=== PATIENT | female | born 1955 | race Caucasian/White ===

== ENCOUNTER → 2018-08-28 | Outpatient (CLI) | payer MEDICARE ==
[~2018-08-28] VITALS: Ht 170.2 cm; Wt 107.0 kg
[~2018-08-28] MED LIST: ASPI-9 PO; AZEL50GE5 TOP; BACL10TA PO; CARB200T6 PO; CATHETER FLUSH 10 ML SYR IV PRN; CETI10CA PO; CLOP75TA28 PO; FERR325T18 PO; GABA-488 PO; HYDR-3820 PO; INDO25CA15 PO; INDO75CA3 PO; LISI-556 PO; NFPRILOC40 PO; ONDA4TAB11 PO; ONDANSETRON 4 MG/2 ML (SDV) Z0FRAN IVP ONE; PANT40TA2 PO; PANT40VI PO; REGADENOSON 0.4 MG/5 ML SYR (LEXISCAN) IV ONE; SIMV20TA3 PO; SUCR1TAB PO; SUCR1TAB36 PO; WARF5TAB PO; WARF7.5T PO
--- NOTE | 2018-08-28 20:29 | STRESS TEST ---
DATE OF SERVICE: 08/28/2018 RESTING AND POST REGADENOSON TECHNETIUM-99M TETROFOSMIN SPECT CT IMAGING ORDERING PHYSICIAN: Terra Lowry APRN PRIMARY CARE PHYSICIAN: Dr. Velazquez. OTHER PHYSICIAN: Rosemary Aguiar MD CLINICAL DIAGNOSIS: Chest discomfort. Baseline images were carried out after injection of 9.89 mCi of technetium-99m tetrofosmin. This was followed by 0.4 mg of regadenoson and 27.4 mCi of technetium-99m tetrofosmin for stress imaging. The electrocardiogram showed sinus rhythm at baseline and did not change significantly with the regadenoson infusion. The patient tolerated the procedure well and did not report significant symptoms. Review of images at rest and following stress does not indicate any significant perfusion defect consistent with significant myocardial ischemia or infarction. Gated images show normal global left ventricular systolic function and normal regional wall motion. Left ventricular ejection fraction is calculated to be 77%. Left ventricular end diastolic volume is 21 mL. TID is absent (1.14). CONCLUSIONS: 1. No evidence of any significant myocardial ischemia or infarction on this study. 2. Normal regional wall motion. 3. Normal global left ventricular systolic function with a calculated ejection fraction of 77%. Job ID: [id number] DocumentID: [id number] Dictated Date: 08/28/2018 18:00:55 Patient Carrier Date: 08/28/2018 20:28:53 Dictated By: ROSEMARY AGUIAR MD, MA, FACP, FACC,
== END ==
LOC: CARD 11:12
PROVIDERS: ATTEND Nurse Practitioner Family
DX: R07.9 Chest pain, unspecified (principal); I25.10 Atherosclerotic heart disease of native coronary artery without angina pectoris; I73.9 Peripheral vascular disease, unspecified; G47.33 Obstructive sleep apnea (adult) (pediatric); I77.89 Other specified disorders of arteries and arterioles
CPT/HCPCS: 78452; 93017

== ENCOUNTER → 2018-10-17 | Outpatient (CLI) | payer MEDICARE, OTHER ==
[~2018-10-17] MED LIST changes: -CATHETER FLUSH 10 ML SYR IV PRN; -ONDANSETRON 4 MG/2 ML (SDV) Z0FRAN IVP ONE; -REGADENOSON 0.4 MG/5 ML SYR (LEXISCAN) IV ONE
--- NOTE | 2018-10-17 12:02 | Diagnostic Imaging Report ---
Indication: 48-pzdx-htps history of smoking. Comparison: None. Technique: Routine noncontrast low-dose CT of the chest was performed per department protocol for screening purposes. Findings: Evaluation of the lung roe demonstrates no suspicious pulmonary nodules or masses. There is no focal consolidation, large effusion, nor pneumothorax. Cardiomediastinal structures are somewhat suboptimally evaluated given low-dose noncontrast nature of the exam, but heart size is shown to be within normal limits. There is no large pericardial effusion. Evaluation for mediastinal, hilar, or axillary adenopathy is suboptimal given significant model artifact. Bony structures show age-related degenerative changes. Included portions of the upper abdomen are also heavily obscured. Impression: 1. No suspicious pulmonary nodules or masses. Continued followup with annual low-dose CT chest is recommended. Lung rads category: 1 Modifiers: None. Dictated by: Dictated on workstation # [id number]
== END ==
LOC: RAD 10:08
PROVIDERS: ATTEND Internal Medicine
DX: Z12.31 Encounter for screening mammogram for malignant neoplasm of breast (principal); Z12.2 Encounter for screening for malignant neoplasm of respiratory organs; Z87.891 Personal history of nicotine dependence
CPT/HCPCS: 77067

== ENCOUNTER → 2020-11-20 | Outpatient (CLI) | payer MEDICARE, OTHER ==
[~2020-11-20] MED LIST changes: +ACHYD1T PO; -HYDR-3820 PO; -INDO25CA15 PO; +INDO25CA99 PO; +SIMV20TA26 PO; -SIMV20TA3 PO; -WARF5TAB PO; +WARF5TAB2 PO
--- NOTE | 2020-11-20 14:40 | Diagnostic Imaging Report ---
INDICATION: Routine screening Comparison is made with prior mammogram from 10/17/2018 and 03/04/2014. 2-D and 3-D bilateral screening mammography was performed with CAD. Scattered fibroglandular densities are identified bilaterally. Benign calcifications are noted in both breasts. No mass or malignant appearing microcalcifications are seen. Axillae are unremarkable. IMPRESSION: BI-RADS Category 2 No mammographic features suspicious for malignancy are identified. ACR BI-RADS Category 2: Benign findings. Result letter will be mailed to the patient. Note: At least 10% of breast cancer is not imaged by mammography. Dictated by: Dictated on workstation # [id number]
== END ==
LOC: RAD 13:02
PROVIDERS: ATTEND Internal Medicine
DX: Z12.31 Encounter for screening mammogram for malignant neoplasm of breast (principal)
CPT/HCPCS: 77063; 77067

== ENCOUNTER → 2021-01-15 | Outpatient (CLI) | payer MEDICARE, OTHER ==
[~2021-01-15] MED LIST changes: -LISI-556 PO; +LISI-729 PO
--- NOTE | 2021-01-15 15:55 | Diagnostic Imaging Report ---
CT Lung Screening INDICATION: 90 pack year smoking history. Cessation 6 years ago. TECHNIQUE: Noncontrast, low-dose CT imaging performed according to the lung cancer screening protocol. Auto Exposure Controls were utilize during the CT exam to meet ALARA standards for radiation dose reduction. COMPARISON:10/17/2018. FINDINGS: No suspicious pulmonary nodule or dominant lung mass. No alveolar consolidation, effusion or pneumothorax. There is a small hiatal hernia, chronic. There are coronary arterial atherosclerotic vascular calcifications. There is no effusion or pneumothorax. The aorta is nonaneurysmal. There are some stable subcentimeter paratracheal mediastinal lymph nodes. The visualized upper abdomen is nonacute. IMPRESSION: No suspicious lung mass. Continued low-dose CT screening follow-up in one year's time recommended LUNG-RADS CATEGORY: Category 1 MODIFIER: None OTHER SIGNIFICANT FINDINGS: Coronary atherosclerosis, hiatal hernia and atherosclerotic aortic nonaneurysmal disease. Dictated by: Dictated on workstation # [id number]
== END ==
LOC: RAD 14:52
PROVIDERS: ATTEND Internal Medicine
DX: E78.2 Mixed hyperlipidemia (principal); F17.210 Nicotine dependence, cigarettes, uncomplicated
CPT/HCPCS: 71271

== ENCOUNTER 2021-02-09 05:39 | Outpatient (CLI) | payer MEDICARE ==
[~2021-02-09] VITALS: Ht 170 cm; Wt 86.6 kg
== END 2021-02-09 14:17 | disposition home or self-care (01) ==
LOC: PREOP 05:39
PROVIDERS: ATTEND Surgery
DX: Z01.818 Encounter for other preprocedural examination (principal)

== ENCOUNTER → 2021-02-16 | Day surgery (SDC) | payer MEDICARE, OTHER ==
[~2021-02-16] VITALS: Ht 170 cm; Wt 86.6 kg
[2021-02-16] VITALS (7 sets, daily range): BP systolic 109–121; BP diastolic 55–68
[~2021-02-16] MED LIST changes: +LACTATED RINGERS 1,000 ML IV ONE; +LACTATED RINGERS 1,000 ML IV STA; +MIDAZOLAM 2 MG/2 ML (VERSED) VIAL ONE; +proPOfol 200 MG/20 ML (DIPRIVAN) VIAL IV ONE
--- NOTE | 2021-02-16 09:15 | Progress Note-Pre Operative ---
Pre-Operative Progress Note H&P Reviewed The H&P was reviewed, patient examined and no changes noted. Date Seen by Provider: Feb 16, 2021 Time Seen by Provider: 09:15 Date H&P Reviewed: Feb 16, 2021 Time H&P Reviewed: 09:15 Pre-Operative Diagnosis: + RAFAEL Fraser DO Feb 16, 2021 09:15
--- NOTE | 2021-02-16 09:57 | Discharge Inst-Simple/Standard ---
Discharge Inst-Standard Patient Instructions/Follow Up Plan of Care/Instructions/FU: Clear liquid diet nothing to drink after midnight. TO have ct scan abdomen and pelvis with rectal contrast tomorrow. Dr. Castro 2 weeks. Activity as Tolerated: Yes Discharge Diet: Liquid Diet RAFAEL CASTRO DO Feb 16, 2021 09:57
--- NOTE | 2021-02-16 10:00 | Progress Note-Post Operative ---
Post-Operative Progess Note Surgeon (s)/Signals Officer (s) Surgeon RAFAEL RAZA DO Signals Officer: na Pre-Operative Diagnosis + cologuard Post-Operative Diagnosis incomplete colonosocpy, diverticulosis Procedure & Operative Findings Date of Procedure 02/16/21 Procedure Performed/Findings flex sig Anesthesia Type per mda Estimated Blood Loss Estimated blood loss (mL): none Specimens/Packing Specimens Removed na RAFAEL RAZA DO Feb 16, 2021 10:00
--- NOTE | 2021-02-16 13:01 | Anesthesia-General Post-Op ---
MAC Patient Condition Mental Status/LOC: Same as Preop Cardiovascular: Satisfactory Nausea/Vomiting: Absent Respiratory: Satisfactory Pain: Controlled Complications: Absent Post Op Complications Complications None Follow Up Care/Instructions Patient Instructions None needed. Anesthesiology Discharge Order Discharge Order Patient was seen this morning after the procedure and she was doing well, no complaints, stable vital signs, no apparent adverse anesthesia problems. MICAH ELAM DO Feb 16, 2021 13:01
--- NOTE | 2021-02-16 14:24 | OPERATIVE REPORT ---
DATE OF SERVICE: 02/16/2021 PREOPERATIVE DIAGNOSIS: Positive Cologuard. POSTOPERATIVE DIAGNOSIS: Incomplete colonoscopy, diverticulosis. PROCEDURE PERFORMED: Flexible sigmoidoscopy. SURGEON: Rafael Castro DO. ANESTHESIA: Per MDA. ESTIMATED BLOOD LOSS: None. COMPLICATIONS: None. INDICATIONS FOR PROCEDURE: The patient is a 65-year-old female with positive Cologuard. She understands the risks and benefits of the procedure and wished to proceed with the procedure. Consent was signed in the chart. DESCRIPTION OF PROCEDURE: The patient was taken to the endoscopy suite, placed in left lateral recumbent position. Timeout was performed. Digital rectal exam was performed noting some hemorrhoidal disease. No palpable polyps, masses or ulcerations. Scope was inserted in the rectum and began to be advanced through the sigmoid colon, which was redundant and evidence of diverticulosis. It became the point where the scope could not be past the sigmoid colon. The patient was repositioned multiple times. Scope was then slowly retracted back noting no other pathology until completely removed. The pediatric scope was then inserted in the rectum and advanced to the same point in the sigmoid colon, where the scope again was unable to be passed. The patient was repositioned multiple times without any success. The patient then had scope slowly retracted until completely removed, noting no other pathology. The patient tolerated the procedure well without any complications. She was taken to the recovery room in stable condition. We will order a CT scan with rectal contrast to evaluate the remainder of the colon. She is to stay on clear liquid diet today, n.p.o. after midnight and have a CT scan performed tomorrow. Job ID: [id number] DocumentID: [id number] Dictated Date: 02/16/2021 10:02:44 Entrepreneur Date: 02/16/2021 14:22:59 Dictated By: RAFAEL CASTRO DO
== END ==
LOC: ENDO 09:03
PROVIDERS: ATTEND Surgery
DX: K57.30 Diverticulosis of large intestine without perforation or abscess without bleeding (principal); K64.9 Unspecified hemorrhoids; Z88.0 Allergy status to penicillin; R19.5 Other fecal abnormalities; I10 Essential (primary) hypertension; E66.01 Morbid (severe) obesity due to excess calories; D64.9 Anemia, unspecified; F41.9 Anxiety disorder, unspecified; I69.398 Other sequelae of cerebral infarction; G47.33 Obstructive sleep apnea (adult) (pediatric); I70.209 Unspecified atherosclerosis of native arteries of extremities, unspecified extremity; Z99.81 Dependence on supplemental oxygen; Z79.02 Long term (current) use of antithrombotics/antiplatelets; Z79.01 Long term (current) use of anticoagulants; Z89.619 Acquired absence of unspecified leg above knee; Z87.891 Personal history of nicotine dependence; Z79.891 Long term (current) use of opiate analgesic; Z79.899 Other long term (current) drug therapy; Z68.30 Body mass index [BMI] 30.0-30.9, adult; Z98.51 Tubal ligation status; Z79.82 Long term (current) use of aspirin

== ENCOUNTER → 2021-02-17 | Outpatient (CLI) | payer MEDICARE, OTHER ==
[~2021-02-17] MED LIST changes: -LACTATED RINGERS 1,000 ML IV ONE; -LACTATED RINGERS 1,000 ML IV STA; -MIDAZOLAM 2 MG/2 ML (VERSED) VIAL ONE; -proPOfol 200 MG/20 ML (DIPRIVAN) VIAL IV ONE
--- NOTE | 2021-02-17 09:55 | Diagnostic Imaging Report ---
EXAMINATION: CT Abdomen Pelvis without contrast. TECHNIQUE: Multiple contiguous axial images were obtained through the abdomen and pelvis without the use of intravenous contrast. All CT scans use one or more of the following dose optimizing techniques: automated exposure control, MA and/or KvP adjustment based on a patient size and exam type, or iterative reconstruction. HISTORY: Failed colonoscopy. COMPARISON: None available. FINDINGS: Lung bases: Bibasilar dependent atelectasis. Solid organs: The liver is normal. The gallbladder is normal. There is no biliary ductal dilation. Pancreas is normal. Spleen is normal. Adrenal glands are normal. The kidneys are normal without visualized calculus or hydronephrosis. Bowel: There is a small hiatal hernia. No bowel obstruction. The rectal catheter is seen within the rectum. There is rectal contrast seen extending from the level of the anus to the cecum with some contrast seen within the distal ileum. No visualized obstruction within the colon. The appendix is nonvisualized. Peritoneum: There is no intraperitoneal free fluid or free air. No suspicious lymphadenopathy. Vasculature: Atherosclerosis with aneurysmal dilatation of the infrarenal abdominal aorta measuring up to 4.5 cm. Musculoskeletal: Degenerative changes of the spine without suspicious osseous lesion or compression fracture. Pelvis: The uterus and adnexa are normal. There is a small focus of nondependent air within the bladder lumen. IMPRESSION: 1. Unremarkable appearance of the colon without obstruction. 2. Small hiatal hernia. 3. Atherosclerosis with aneurysmal dilatation of the infrarenal abdominal aorta measuring up to 4.5 cm. 4. Air within the bladder lumen. Recommend correlation with urinalysis and history of any recent instrumentation. Dictated by: Dictated on workstation # [id number]
== END ==
LOC: RAD 08:15
PROVIDERS: ATTEND Surgery
DX: K44.9 Diaphragmatic hernia without obstruction or gangrene (principal); I71.4 Abdominal aortic aneurysm, without rupture; Z53.9 Procedure and treatment not carried out, unspecified reason
CPT/HCPCS: 74176

== ENCOUNTER → 2022-01-25 | Outpatient (CLI) | payer MEDICARE, OTHER ==
[~2022-01-25] VITALS: Ht 170 cm; Wt 86.0 kg
[~2022-01-25] MED LIST changes: +CATHETER FLUSH 10 ML SYR IVP PRN; +INDO75CA10 PO; -INDO75CA3 PO; -LISI-729 PO; +LISI5TAB20 PO; +REGADENOSON 0.4 MG/5 ML SYR (LEXISCAN) IV ONE
[2022-01-25 13:28] VITALS: BP 144/83
== END ==
LOC: CARD 11:30
PROVIDERS: ATTEND Internal Medicine Cardiovascular Disease
DX: I35.8 Other nonrheumatic aortic valve disorders (principal)
CPT/HCPCS: 78452; 93017; 93306; A9502